=== PATIENT | male | born 1960 | race Caucasian/White ===

== ENCOUNTER → 2023-06-13 10:37 | Outpatient (CLI) | payer BC, SELFPAY ==
--- NOTE | ~2023-06-13 | CT_ITS ---
CT Scan of the Chest without Contrast: Clinical Indication: Lung cancer screening, personal history of nicotine dependence Technique: Contiguous sections were acquired throughout the chest without intravenous contrast. Dose reduction technique was used on this scan by utilizing automated exposure control and iterative recon struction technique. The dose-length product (DLP) was 68.31 mGy-cm. Findings: There is no evidence of any significant mediastinal, hilar or axillary lymphadenopathy. The mediastin al soft tissues appear normal. There is no evidence of pleural or pericardial effusion. There is right apical scarring. There is a 1 cm nodule in the right middle lobe (axial image 77). The re is additional 6 mm nodule in the medial right middle lobe (axial image 77). There is a 7 mm left l ower lobe pulmonary nodule (axial image 82). Images through the upper abdomen reveal no abnormalities. Impression: Lung RADS 4A: Suspicious. 3 month follow-up CT and/or PET/CT are recommended. Reviewed, dictated and finalized at location . Impression: Lung RADS 4A: Suspicious. 3 month follow-up CT and/or PET/CT are recommended.
== END ==
PROVIDERS: PCP Internal Medicine; Visit Provider Internal Medicine
DX: Z12.2 Encounter for screening for malignant neoplasm of respiratory organs (principal); Z87.891 Personal history of nicotine dependence; R91.8 Other nonspecific abnormal finding of lung field
CPT/HCPCS: 71271

== ENCOUNTER 2023-08-14 11:53 | Outpatient (CLI) | payer BC, SELFPAY ==
--- NOTE | ~2023-08-14 | PE_ITS ---
EXAMINATION: PET skull to mid thigh DATE: 08/14/2023 14:29 INDICATION: Multiple nodules of lung. TECHNIQUE: Blood glucose level was 103 mg/dL. 11.521 mCi of 18-fluorodeoxyglucose (18-FDG) was admini stered i.v. Low dose computed tomography (CT) images were acquired from the base of the brain to the proximal thighs for attenuation correction and anatomic localization. Automated exposure control was employed. Dose-length product (DLP) was 552 mGy-cm. Positron emission tomography (PET) images were ac quired in the same distribution. COMPARISON: Chest CT 06/13/2023, 07/14/07 FINDINGS: Head/neck: There are no pathologically enlarged lymph nodes. Chest: There is mild emphysema. There is mild scarring in right upper lobe. There is mild atelectasis bilaterally. There is an 8 mm nodule at minor fissure without increased activity. There is a 6 mm no dule at minor fissure without increased activity. There is a 7 mm nodule at left major fissure withou t increased activity. These findings are stable from 07/14/2007. No pleural effusion. The heart size i s normal. No pericardial effusion. There are no pathologically enlarged lymph nodes. Abdomen/pelvis/proximal thighs: The liver is normal. There is a gallstone in the gallbladder, which i s normal in size. The spleen, pancreas, adrenal glands, and left kidney are normal. There is a 1.8 cm cyst in right kidney. There is a 10 mm mass right kidney measuring soft tissue attenuation. There ar e no dilated loops of bowel. The prostate is mildly enlarged. There are no dilated loops of bowel. Th e appendix is normal. There are no pathologically enlarged lymph nodes. There is no free intraperiton eal fluid. There is severe lumbar spondylosis. IMPRESSION: 1. Stable chronic pulmonary nodules, likely benign. 2. 10 mm right kidney mass, which may be a hemorrhagic cyst or less likely a neoplasm. Abdomen CT wit hout and with contrast is recommended. Reviewed, dictated and finalized at location A. IMPRESSION: 1. Stable chronic pulmonary nodules, likely benign. 2. 10 mm right kidney mass, which may be a hemorrhagic cyst or less likely a ne oplasm. Abdomen CT without and with contrast is recommended.
[2023-08-14 12:18] LABS: Glucose Point of Care 103 mg/dl (65-105)
== END 2023-08-14 11:54 | disposition home or self-care (01) ==
PROVIDERS: PCP Internal Medicine; Visit Provider Internal Medicine
DX: R91.8 Other nonspecific abnormal finding of lung field (principal); N28.89 Other specified disorders of kidney and ureter
CPT/HCPCS: 78815; A9552

== ENCOUNTER 2023-09-01 13:42 | Outpatient (CLI) | payer BC, SELFPAY ==
--- NOTE | ~2023-09-01 | CT_ITS ---
EXAMINATION: CT abdomen pelvis wo/w con DATE: 09/01/2023 14:55 INDICATION: Right renal mass TECHNIQUE: Computed tomography (CT) of the abdomen and pelvis was performed without and with 100 mL O mnipaque-350 intravenous contrast. Automated exposure control and iterative reconstruction technique were employed. The dose-length product was 681.74 mGy-cm. COMPARISON: CT dated 06/13/2023 and 07/14/2007 and PET/CT dated 08/14/2023 FINDINGS: Mild emphysema and scattered discoid atelectasis/scarring in the visualized lower lungs. No significa nt change in 9 mm and 7 mm nodules along the right minor fissure which are without increased FDG upta ke on prior PET/CT and which have been present since 2006, which are likely benign. Heart size is nor mal. Atherosclerotic coronary artery calcific location. No pericardial or pleural effusion. 5 mm cyst at the caudal right hepatic lobe. Small calcified gallstone in the dependent aspect of the normal ga llbladder. Spleen, pancreas and bilateral adrenal glands are normal. Bilateral nonenhancing renal cys ts including 2.3 and 1.0 cm likely proteinaceous/hemorrhagic cysts at the right kidney with slightly greater than simple fluid attenuation. Bowels including the appendix are normal. Bladder is normal. M ild prostatomegaly. No free intraperitoneal gas or fluid. No pathologically enlarged abdominal or pel oracio lymphadenopathy. Severe lumbar spondylosis. IMPRESSION: 1. 2.3 cm and 1.0 cm nonenhancing proteinaceous/hemorrhagic cyst with slightly greater than simple fl uid attenuation in the right kidney which includes the lesion of concern on prior PET/CT. 2. Cholelithiasis. Reviewed, dictated and finalized at location A. IMPRESSION: 1. 2.3 cm and 1.0 cm nonenhancing proteinaceous/hemorrhagic cyst with slightly greater than simple fluid attenuation in the right kidney which includes the le devaughn of concern on prior PET/CT. 2. Cholelithiasis.
[2023-09-01 14:44] LABS: Estimated Glomerular Filt Rate > 60
== END 2023-09-01 13:43 | disposition home or self-care (01) ==
LOC: ANHIMG 13:44
PROVIDERS: PCP Internal Medicine; Visit Provider Internal Medicine Hematology & Oncology
DX: N28.89 Other specified disorders of kidney and ureter (principal); K80.20 Calculus of gallbladder without cholecystitis without obstruction
CPT/HCPCS: 74178; Q9967

== ENCOUNTER 2024-06-16 10:10 | Outpatient (CLI) | payer BC, SELFPAY ==
--- NOTE | ~2024-06-16 | CT_ITS ---
CT Scan of the Chest without Contrast: Clinical Indication: Lung cancer screening, nicotine dependence Technique: Contiguous sections were acquired throughout the chest without intravenous contrast. Dose reduction technique was used on this scan by utilizing automated exposure control and iterative recon struction technique. The dose-length product (DLP) was 100.61 mGy-cm. COMPARISON: 06/13/2023 Findings: There is no evidence of any significant mediastinal, hilar or axillary lymphadenopathy. The mediastin al soft tissues appear normal. There is no evidence of pleural or pericardial effusion. Stable right upper lobe scarring. Stable right middle lobe pulmonary nodules (axial image 80). There is linear scarring at the lingula. Probable mild emphysema. Images through the upper abdomen reveal no abnormalities. Impression: Lung RADS 2: Benign appearance. 12 month follow-up screening CT advised. Reviewed, dictated and finalized at location . Impression: Lung RADS 2: Benign appearance. 12 month follow-up screening CT advised.
== END 2024-06-16 10:11 ==
LOC: MICIMG 10:11
PROVIDERS: PCP Internal Medicine; Visit Provider Internal Medicine Hematology & Oncology
DX: Z12.2 Encounter for screening for malignant neoplasm of respiratory organs (principal); Z87.891 Personal history of nicotine dependence
CPT/HCPCS: 71271

== ENCOUNTER 2025-06-23 08:53 | Outpatient (CLI) | payer BC, SELFPAY ==
--- NOTE | ~2025-06-23 | CT_ITS ---
EXAMINATION: CT diagnostic chest w con DATE: 06/23/2025 09:44 INDICATION: SCREENING FOR LUNG CANCER TECHNIQUE: Computed tomography (CT) of the chest was performed without intravenous contrast. Addition al 3D reconstructions utilizing coronal maximum intensity projection (MIP) were performed. Automated exposure control and iterative reconstruction technique were employed. The dose-length product was 20 3.18 mGy-cm. COMPARISON: 06/16/2024 FINDINGS: Mild emphysema. Table appearance of right apical pleural-parenchymal scarring and additional scarring anteriorly at the right middle lobe and lingula. No significant interval change in a few scattered p ulmonary nodules, the largest including a 9 x 6 mm nodule at the right middle lobe, previously 11 x 6 mm, unchanged 7 mm nodule also in the right middle lobe, a 4 mm nodule at the basilar right lower lo be and an approximately 6 mm thin triangular likely intrafissural lymph node along the left major fis sure. No new or enlarging pulmonary nodules, pneumonia, pulmonary edema or pleural effusion. Heart si ze is normal. No pericardial effusion. Thoracic aorta is normal in caliber with no dissection. No pat hologically enlarged thoracic lymphadenopathy. Couple subcentimeter low-attenuation likely cysts vers us hemangiomas at the dome of the liver. 2.8 cm right renal cyst. Mild thoracic spondylosis. IMPRESSION: 1. . Lung-RADS category 2: Benign appearance or behavior. Continue annual screening with noncontrast low-dose chest CT in 12 months. Reviewed, dictated and finalized at location A. IMPRESSION: 1. . Lung-RADS category 2: Benign appearance or behavior. Continue annual scree gisell with noncontrast low-dose chest CT in 12 months.
--- OUTSIDE RECORDS SUMMARY | 2025-06-23 08:58 | XMS_ITS | Clinical Summary ---
Author Organization [facility] [address] [place] [address] Care Team Providers Care Geotechnical Intern Name Role Phone Nakita Lomeli MD Primary Care Provider Allergies No known active allergies Medications multivitamins-mi nerals-lutein (CENTRUM SILVER) Tablet Take 1 Tablet by mouth daily. Active CHOLECALCIFEROL, VITAMIN D3, ORAL Take by mouth. Active Active Problems No known active problems Encounters Date Type Department Care Team Description 06/21/2025 Orders Only [facility] and [facility] [address] [place] [address] Sgeundo Marie MD Screening for lung cancer (Primary Dx) 06/15/2025 External Device Data STL ABSTRACTION Provider, Abstract 05/23/2025 Abstract [facility] [address] [place] [address] Segundo Marie MD from Last 3 Months Family History Medical History Relation Name Comments Diabetes Father Heart Disease Father Throat Cancer Father Relation Name Status Comments Daughter 1 Alive Daughter 2 Alive Father Mother Alive Sister Alive Social History Tobacco Use Types Packs/Day Years Used Date Smoking Tobacco: Every Day Cigarettes 1 30 Smokeless Tobacco: Never Tobacco Cessation:Ready to Q uit: Not Asked; Counseling Given: Not Answered Alcohol Use Standard Drinks/Week Comments Yes 0 (1 standard drink = 0.6 oz pur e alcohol) Sex and Gender Information Value Date Recorded Sex Assigned at Not on file Legal Sex Male 2:00 PM CDT Gender Identity Not on file Sexual Orientation Not on file Last Filed Vital Signs Vital Sign Reading Time Taken Comments Blood Pressure 132/86 06/23/2024 1:13 PM CDT Pulse 80 06/23/2024 1:13 PM CDT Temperature 36.7 C (98 F) 06/23/2024 1:13 PM CDT Respiratory Rate 18 06/23/2024 1:13 PM CDT Oxygen Saturation 94% 06/23/2024 1:13 PM CDT Inhaled Oxygen Concentration - - Weight 73.5 kg (162 lb) 06/23/2024 1:13 PM CDT Height 171.5 cm (5' 7.5) 08/26/2023 1:14 PM CDT Body Mass Index 25 08/26/2023 1:14 PM CDT Plan of Treatment Upcoming Encounters Date Type Department Care Team (Late st Contact Info) Description 06/30/2025 1:00 PM CDT Office Visit [facility] and H[facility] [address] [facility] [address] [place] [address] Segundo Marie MD [address] [facility] [address] [place] [address] Health Maintenance Due Date Last Done Comments COLORECTAL SCREENING 2007 Colorectal Cancer Screening 2007 FIT-DNA Q 3 years 2007 FIT/FOBT Q 1 year 2007 Flex Sig/CT Colonography Q 5 years 2007 Lung Cancer Screening 2012 ZOSTER VACCINE (1 of 2) 2012 COVID-19 Vaccine ( season) 2024 11/08/2021, 03/05/2021, 02/09/2021 Preventative Visit- Commercial 12/01/2024 INFLUENZA VACCINE (#1) 2025 DTAP/TDAP/TD VACCINES (2 - T d or Tdap) 01/01/2033 01/01/2023 RSV VACCINE (60+ or ) (1 - 1-dose 75+ series) [address] [place] [address] BLUE ACCESS/TRUE BLUE PPO Care Teams Geotechnical Intern Relationship Specialty Start Date End Date Nakita Lomeli MD PCP - General Internal Medicine 08/08/23
--- OUTSIDE RECORDS SUMMARY | 2025-06-23 08:58 | XMS_ITS | Data Portability ---
Author Organization [place] [facility], Main Office Address [address] [place] [address] Care Team Providers Care Strapper Operator Name Role Phone NAKITA LOMELI Primary Care Provider [phone] RADHA MARIE Medical Oncologist [phone] Assessment Encounter Date Assessment Date Assessment LastModified by Organization Details LastModified Time 01/19/2024 01/19/2024 01/11/2023: PSA 0.35 02/01/2023: CBC WN Not available 01/19/2024 09:50:12 07/19/2024 07/19/2024 01/11/2023: PSA 0.35 02/01/2023: CBC WNL 07/09/2024: LDL 104 Gluc 106 HCT 50.4, MCV 101.6 PSA 0.2 Not available 07/19/2024 10:13:24 10/25/2024 10/25/2024 01/11/2023: PSA 0.35 02/01/2023: CBC WNL 07/09/2024: LDL 104 Gluc 106 HCT 50.4, MCV 101.6 PSA 0.2 10/15/2024: A1C 5.2 Gluc 101 LDL 105 Not available 10/25/2024 09:52:56 01/17/2025 01/17/2025 01/11/2023: PSA 0.35 02/01/2023: CBC WNL 07/09/2024: LDL 104 Gluc 106 HCT 50.4, MCV 101.6 PSA 0.2 10/15/2024: A1C 5.2 Gluc 101 LDL 105 01/07/2025: A1C 5.4 Gluc 105 LDL 110 Not available 01/17/2025 11:11:04 05/23/2025 05/23/2025 01/11/2023: PSA 0.35 02/01/2023: CBC WNL 07/09/2024: LDL 104 Gluc 106 HCT 50.4, MCV 101.6 PSA 0.2 10/15/2024: A1C 5.2 Gluc 101 LDL 105 01/07/2025: A1C 5.4 Gluc 105 LDL 110 05/17/2025: A1C 5.2 WBC 10.9, MCV 102.1 Not available 05/19/2025 10:52:57 Plan of Treatment Reminders Order Date Submit Date Provider Last Modified By Organization Details Last Modified Time Details Appointments Follow Up 15 2024 09:15A Idalia lau MD Not available Not available Not available Lab HbA1c (hemoglob in A1c), blood 2024 025 [employer] [facility], [address], [place], [address], 05/23/2025 10:18:34 microalbu min, urine 2024 025 [employer] [facility], [address], [place], [address], 05/23/2025 10:18:31 vitamin B12 + folate, serum or blood 2024 025 [place] [address] [employer] [facility], [address], [place], [address], 05/30/2025 09:55:10 CMP, serum or plasma 2024 025 [employer] [facility], [address], [place], [address], 05/23/2025 10:18:30 CBC w/ auto diff 2024 025 [employer] [facility], [address], [place], [address], 05/23/2025 10:18:29 T4, free, serum 2024 025 [employer] [facility], [address], [place], [address], 05/23/2025 10:18:32 TSH, serum or plasma 2024 025 [employer] [facility], [address], [place], [address], 05/23/2025 10:18:30 lipid panel, serum 2024 025 [employer] [facility], [address], [place], [address], 05/23/2025 10:18:33 HbA1c (hemoglob in A1c), blood 2024 025 [employer] [facility], [address], [place], [address], 05/18/2025 03:19:35 microalbu min, urine 2024 025 [employer] [facility], [address], [place], [address], 05/18/2025 03:19:31 CMP, serum or plasma 2024 025 [employer] [facility], [address], [place], [address], 05/18/2025 03:19:29 CBC w/ auto diff 2024 025 [employer] [facility], [address], [place], [address], 05/18/2025 03:19:32 T4, free, serum 2024 025 [employer] [facility], [address], [place], [address], 05/18/2025 03:19:33 TSH, serum or plasma 2024 025 [employer] [facility], [address], [place], [address], 05/18/2025 03:19:34 lipid panel, serum 2024 025 [facility] [facility], [address], [place], [address], 05/18/2025 03:19:28 HbA1c (hemoglob in A1c), blood 2023 024 [employer] [facility], [address], [place], [address], 01/08/2025 04:38:07 microalbu min, urine 2023 024 [employer] [facility], [address], [place], [address], 01/08/2025 04:38:02 CMP, serum or plasma 2023 024 [facility] [facility], [address], [place], [address], 01/08/2025 04:38:01 CBC w/ auto diff 2023 024 [facility] [facility], [address], [place], [address], 01/08/2025 04:38:03 T4, free, serum 2023 024 [facility] [facility], [address], [place], [address], 01/08/2025 04:38:05 TSH, serum or plasma 2023 024 [employer] [facility], [address], [place], [address], 01/08/2025 04:38:06 lipid panel, serum 2023 024 [facility] [facility], [address], [place], [address], 01/08/2025 04:37:59 HbA1c (hemoglob in A1c), blood 2023 024 [employer] [facility], [address], [place], [address], 11/26/2024 14:52:19 microalbu min, urine 2023 024 [employer] [facility], [address], [place], [address], 11/26/2024 14:50:48 CMP, serum or plasma 2023 024 [employer] [facility], [address], [place], [address], 11/26/2024 14:52:19 CBC w/ auto diff 2023 024 [employer] [facility], [address], [place], [address], 11/26/2024 14:52:20 T4, free, serum 2023 024 [facility] [facility], [address], [place], [address], 11/26/2024 14:52:20 TSH, serum or plasma 2023 024 [employer] [facility], [address], [place], [address], 11/26/2024 14:52:20 lipid panel, serum 2023 [facility]24 [facility] [address], [place], [address], 11/26/2024 14:52:19 PSA, total + free, serum or plasma 2023 024 [place] [id number] [employer] [facility], [address], [place], [address], 07/19/2024 10:20:37 lipid panel, serum 2023 024 [place] [address] [employer] [facility], [address], [place], [address], 07/19/2024 10:20:36 CMP, serum or plasma 2023 024 [place] [address] [employer] [facility], [address], [place], [address], 07/19/2024 10:20:36 CBC w/ auto diff 2023 024 [place] [address] [employer] [facility], [address], [place], [address], 07/19/2024 10:20:37 TSH, serum or plasma 2023 024 [place] [address] [employer] [facility], [address], [place], [address], 07/19/2024 10:20:37 Referral oncologis t referral - Please call patient to schedule an appointme nt. Thank you. 2024 025 [facility], [address], [place], [address], 05/23/2025 13:35:26 dermatolo gist referral - Please call patient to schedule an appointme nt. Thank you. 2024 025 [facility] [place], [address] [place], [address], 05/23/2025 13:45:30 cardiolog ist referral - Please call patient to schedule an appointme nt. Thank you. 2024 025 WENDY Ba MD, [address], [place], [address], 05/23/2025 14:00:49 dermatolo gist referral - Please call patient to schedule an appointme nt. Thank you. 2024 025 [facility], [facility] [place], [address], 05/04/2025 10:04:30 cardiolog ist referral - Please call patient to schedule an appointme nt. Thank you. 2024 025 perez Ba MD, [address], [place], [address], 02/14/2025 16:52:23 dermatolo gist referral 2023 024 [place] [address] [facility], [facility] [place], [address], 10/26/2024 11:37:36 dermatolo gist referral 2023 024 [place] [address] [facility], [facility] [place], [address], 10/26/2024 11:39:26 Procedures None recorded. Surgeries None recorded. Imaging None recorded. Medication Orders None recorded. Patient TargetsNo targets recorded. Patient InstructionsNo instructions recorded. Reason for Referral Group Worker Referral for S creening for malignant neoplasm of skin Referring Physician: Nakita Lomeli, Internal Medicine, Encounter Date: 07/19/2024 Group Worker Referral for S creening for malignant neoplasm of skin Referring Physician: Nakita Lomeli, Internal Medicine, Encounter Date: 10/25/2024 Group Worker Referral for S creening for malignant neoplasm of skin Please call patient to schedule an appointment. Thank you. Referring Physician: Nakita Lomeli Internal Medicine, Encounter Date: 01/17/2025 Bacteriologist Food Referral for Sc reening for cardiovascular system disease Please call patient to schedule an appointment. Thank you. Referring Physician: Nakita Lomeli Internal Medicine, Encounter Date: 01/17/2025 Group Worker Referral for S creening for malignant neoplasm of skin Please call patient to schedule an appointment. Thank you. Referring Physician: Nakita Lomeli Internal Medicine, Encounter Date: 05/23/2025 Bacteriologist Food Referral for Sc reening for cardiovascular system disease Please call patient to schedule an appointment. Thank you. Referring Physician: Nakita Lomeli Internal Medicine, Encounter Date: 05/23/2025 Please call patient to sched ule an appointment. Thank you. Referring Physician: Nakita Lomeli Internal Medicine, Encounter Date: 05/23/2025 Results Created Date Observation Date Name Description Value Unit Range Abnormal Flag Note LastModifiedBy Organization Detail LastModifiedTime 01/07/2001/08/2025 LIPID PANEL , STAND AKSHAT cholesterol, total 189 mg/dL <200 normal Not Available [employer] [facility] [address] [place], [address], 01/08/2025 04:37:59 01/07/2001/08/2025 LIPID PANEL , STAND AKSHAT HDL cholesterol 62 mg/dL > or = 40 normal Not Available [employer] [facility] [address] [place], [address], 01/08/2025 04:37:59 01/07/2001/08/2025 LIPID PANEL , STAND AKSHAT triglyceride s 84 mg/dL <150 normal Not Available [employer] [facility] [address] [place], [address], 01/08/2025 04:37:59 01/07/20 25 01/08/2025 LIPID PANEL , STAND AKSHAT LDL-choleste rol 110 mg/dL _(dipti c) high Refer ence range : <100 Zee able range <100 mg/dL for prima ry preve ntion ; <70 mg/dL for patie nts with CHD or diabe tic patie nts with > or = 2 CHD risk facto rs. LDL-C is now calcu lated using the Amy n-Hop kins calcu yasmeen n, which is a valid ated novel metho d provi ding rich r accur acy than the Fried fabián equat ion in the estim ation of LDL-C . Amy rosa SS et al. ELIU. 2013; 310(1 9): 2061- 2068 (http ://ed ucati on.Qu IceRocket. com/f aq/FA Q164) Not Available [employer] [facility] [address] [place], [address], 01/08/2025 04:37:59 01/07/20 25 01/08/2025 LIPID PANEL , STAND AKSHAT chol/HDLC ratio 3.0 (calc ) <5.0 normal Not Available [employer] [facility] [address] [place], [address], 01/08/2025 04:37:59 01/07/20 25 01/08/2025 LIPID PANEL , STAND AKSHAT non HDL cholesterol 127 mg/dL _(dipti c) <130 normal For patie nts with diabe rufus plus 1 major ASCVD risk facto r, treat ing to a non-H DL-C goal of <100 mg/dL (LDL- C of <70 mg/dL ) is luis f otero optio n. Not Available [employer] [facility] [address] [place], [address], 01/08/2025 04:37:59 01/07/20 25 01/08/2025 COMPR EHENS BREANN METAB OLIC PANEL glucose 105 mg/dL 65-99 high Fasti ng refer ence inter mary For someo ne witho ut known diabe rufus, a gluco se value betwe en 100 and 125 mg/dL is consi stent with predi abete s and shoul d be confi rmed with a follo w-up test. Not Available [address], [address], 01/08/2025 04:38:01 01/07/20 25 01/08/2025 COMPR EHENS BREANN METAB OLIC PANEL urea nitrogen (BUN) 10 mg/dL 7-25 normal Not Available [facility] [address], [address], 01/08/2025 04:38:01 01/07/20 25 01/08/2025 COMPR EHENS BREANN METAB OLIC PANEL creatinine 0.70 mg/dL 0.70-1 .35 normal Not Available [employer] [address], [address], 01/08/2025 04:38:01 01/07/20 25 01/08/2025 COMPR EHENS BREANN METAB OLIC PANEL eGFR 104 mL/mi n/1.7 3m2 > or = 60 normal Not Available [employer] [address], [address], 01/08/2025 04:38:01 01/07/20 25 01/08/2025 COMPR EHENS BREANN METAB OLIC PANEL BUN/creatini ne ratio SEE NOTE: (calc ) 6-22 Not Repor lew: BUN and Creat inine are withi n refer ence range . Not Available [facility] [address], [address], 01/08/2025 04:38:01 01/07/20 25 01/08/2025 COMPR EHENS BREANN METAB OLIC PANEL sodium 139 mmol/ L 135-14 6 normal Not Available [employer] [address], [address], 01/08/2025 04:38:01 02/07/20 25 01/08/2025 COMPR EHENS BREANN METAB OLIC PANEL potassium 4.5 mmol/ L 3.5-5. 3 normal Not Available [address], [address], 01/08/2025 04:38:01 01/07/20 25 01/08/2025 COMPR EHENS BREANN METAB OLIC PANEL chloride 103 mmol/ L 98-110 normal Not Available [address], [address], 01/08/2025 04:38:01 01/07/20 25 01/08/2025 COMPR EHENS BREANN METAB OLIC PANEL carbon dioxide 29 mmol/ L 20-32 normal Not Available [address], [address], 01/08/2025 04:38:01 01/07/20 25 01/08/2025 COMPR EHENS BREANN METAB OLIC PANEL calcium 9.8 mg/dL 8.6-10 .3 normal Not Available [address], [address], 01/08/2025 04:38:01 01/07/20 25 01/08/2025 COMPR EHENS BREANN METAB OLIC PANEL protein, total 7.7 g/dL 6.1-8. 1 normal Not Available [address], [address], 01/08/2025 04:38:01 01/07/20 25 01/08/2025 COMPR EHENS BREANN METAB OLIC PANEL albumin 4.6 g/dL 3.6-5. 1 normal Not Available [address], [address], 01/08/2025 04:38:01 01/07/20 25 01/08/2025 COMPR EHENS BREANN METAB OLIC PANEL globulin 3.1 g/dL_ (calc ) 1.9-3. 7 normal Not Available [address], [address], 01/08/2025 04:38:01 01/07/20 25 01/08/2025 COMPR EHENS BREANN METAB OLIC PANEL albumin/glob ulin ratio 1.5 (calc ) 1.0-2. 5 normal Not Available [address], [address], 01/08/2025 04:38:01 01/07/20 25 01/08/2025 COMPR EHENS BREANN METAB OLIC PANEL bilirubin, total 0.5 mg/dL 0.2-1. 2 normal Not Available [address], [address], 01/08/2025 04:38:01 01/07/20 25 01/08/2025 COMPR EHENS BREANN METAB OLIC PANEL alkaline phosphatase 62 U/L 35-144 normal Not Available [address], [address], 01/08/2025 04:38:01 01/07/20 25 01/08/2025 COMPR EHENS BREANN METAB OLIC PANEL AST 13 U/L 10-35 normal Not Available [address], [address], 01/08/2025 04:38:01 01/07/20 25 01/08/2025 COMPR EHENS BREANN METAB OLIC PANEL ALT 16 U/L 9-46 normal Not Available [address], [address], 01/08/2025 04:38:01 01/07/20 25 01/08/2025 ALBUM IN, RANDO M URINE W/O CREAT ININE albumin, urine 0.2 mg/dL see note: normal Refer ence Range : Refer ence Range Not estab lishe d Not Available [address], [address], 01/08/2025 04:38:02 01/07/20 25 01/08/2025 ALBUM IN, RANDO M URINE W/O CREAT ININE WILLIAM The ADA defin es abnor malit ies in album in excre tion as follo ws: Album inuri a Categ ory Resul t (mg/g creat inine ) Corin l to Mildl y incre ased <30 Moder ately incre ased 30-29 9 Sever vita incre ased > OR = 300 The ADA recom mends that at least two of three speci mens colle cted withi n a 3-6 month perio d be abnor mal befor e consi alexandra g a patie nt to be withi n a diagn ostic categ ory. Not Available [facility] [address], [address], 01/08/2025 04:38:02 01/07/20 25 01/08/2025 CBC (INCL UDES DIFF/ PLT) white blood cell count 8.9 thous and/u L 3.8-10 .8 normal Not Available [facility] [address], [address], 01/08/2025 04:38:03 01/07/20 25 01/08/2025 CBC (INCL UDES DIFF/ PLT) red blood cell count 4.94 ike on/uL 4.20-5 .80 normal Not Available [facility] [address], [address], 01/08/2025 04:38:03 01/07/20 25 01/08/2025 CBC (INCL UDES DIFF/ PLT) hemoglobin 16.7 g/dL 13.2-1 7.1 normal Not Available [facility] [address], [address], 01/08/2025 04:38:03 01/07/20 25 01/08/2025 CBC (INCL UDES DIFF/ PLT) hematocrit 49.2 % 38.5-5 0.0 normal Not Available [facility] [address] [address] [address], [place], [address], 01/08/2025 04:38:03 01/07/20 25 01/08/2025 CBC (INCL UDES DIFF/ PLT) MCV 99.6 fL 80.0-1 00.0 normal Not Available [facility] [address], [address], 01/08/2025 04:38:03 01/07/20 25 01/08/2025 CBC (INCL UDES DIFF/ PLT) MCH 33.8 pg 27.0-3 3.0 high Not Available [employer] [facility] [address], [address], 01/08/2025 04:38:03 01/07/20 25 01/08/2025 CBC (INCL UDES DIFF/ PLT) MCHC 33.9 g/dL 32.0-3 6.0 normal For adult s, a sligh t decre ase in the calcu lated MCHC value (in the range of 30 to 32 g/dL) is most likel y not clini ilana signi cady t; patria er, it shoul d be inter prete d with [facility] with other red cell elaine eters and the patie nt's clini dipti condi tion. Not Available [employer] [address], [address], 01/08/2025 04:38:03 01/07/20 25 01/08/2025 CBC (INCL UDES DIFF/ PLT) RDW 12.9 % 11.0-1 5.0 normal Not Available [employer] [address], [address], 01/08/2025 04:38:03 01/07/20 25 01/08/2025 CBC (INCL UDES DIFF/ PLT) platelet count 222 thous and/u L 140-40 0 normal Not Available [employer] [address], [address], 01/08/2025 04:38:03 01/07/20 25 01/08/2025 CBC (INCL UDES DIFF/ PLT) MPV 11.4 fL 7.5-12 .5 normal Not Available [address], [address], 01/08/2025 04:38:03 01/07/20 25 01/08/2025 CBC (INCL UDES DIFF/ PLT) absolute neutrophils 5571 cells /uL 1500-7 800 normal Not Available [address], [address], 01/08/2025 04:38:03 01/07/20 25 01/08/2025 CBC (INCL UDES DIFF/ PLT) absolute lymphocytes 2225 cells /uL 850-39 00 normal Not Available [address], [address], 01/08/2025 04:38:03 01/07/20 25 01/08/2025 CBC (INCL UDES DIFF/ PLT) absolute monocytes 765 cells /uL 200-95 0 normal Not Available [address], [address], 01/08/2025 04:38:03 01/07/20 25 01/08/2025 CBC (INCL UDES DIFF/ PLT) absolute eosinophils 249 cells /uL 15-500 normal Not Available [address], [address], 01/08/2025 04:38:03 01/07/20 25 01/08/2025 CBC (INCL UDES DIFF/ PLT) absolute basophils 89 cells /uL 0-200 normal Not Available [address], [address], 01/08/2025 04:38:03 01/07/20 25 01/08/2025 CBC (INCL UDES DIFF/ PLT) neutrophils 62.6 % normal Not Available [address], [address], 01/08/2025 04:38:03 01/07/20 25 01/08/2025 CBC (INCL UDES DIFF/ PLT) lymphocytes 25.0 % normal Not Available [facility] [address], [address], 01/08/2025 04:38:03 01/07/20 25 01/08/2025 CBC (INCL UDES DIFF/ PLT) monocytes 8.6 % normal Not Available [facility] [address], [address], 01/08/2025 04:38:03 01/07/20 25 01/08/2025 CBC (INCL UDES DIFF/ PLT) eosinophils 2.8 % normal Not Available [facility] [address], [address], 01/08/2025 04:38:03 01/07/20 25 01/08/2025 CBC (INCL UDES DIFF/ PLT) basophils 1.0 % normal Not Available [facility] [address], [address], 01/08/2025 04:38:03 01/07/20 25 01/08/2025 T4, FREE T4, free 1.2 NG/dL 0.8-1. 8 normal Not Available [address], [address], 01/08/2025 04:38:05 01/07/20 25 01/08/2025 TSH TSH 1.42 mIU/L 0.40-4 .50 normal Not Available [address], [address], 01/08/2025 04:38:06 01/07/20 25 01/08/2025 HEMOG LOBIN A1C hemoglobin A1C 5.4 %_of_ total _HGB <5.7 normal For the purpo se of carlos jameson for the prese nce of diabe rufus: <5.7% Consi stent with the absen ce of diabe rufus 5.7-6 .4% Consi stent with incre ased risk for diabe rufus (pred iabet es) > or =6.5% Consi stent with diabe rufus This assay resul t is consi stent with a decre ased risk of diabe rufus. Curre ntly, no conse nsus exist s gideon louise use of hemog lobin A1c for diagn osis of diabe rufus in child dl. Accor ding to Ameri can Diabe rufus Assoc iatio n (ADA) guide lines , hemog lobin A1c <7.0% repre sents optim al contr ol in non-p regna nt diabe tic patie nts. Diffe rent metri cs may apply to speci fic patie nt popul ation s. Stand ards of Medic al Care in Diabe rufus(A DA). Not Available [place] [address] [place], [address], 01/08/2025 04:38:07 05/17/20 25 05/18/2025 LIPID PANEL WITH REFLE X TO DIREC T LDL cholesterol, total 167 mg/dL <200 normal Not Available [place] [address] [place], [address], 05/18/2025 03:19:28 05/17/20 25 05/18/2025 LIPID PANEL WITH REFLE X TO DIREC T LDL HDL cholesterol 65 mg/dL > or = 40 normal Not Available [facility] [place] [address] [place], [address], 05/18/2025 03:19:28 05/17/20 25 05/18/2025 LIPID PANEL WITH REFLE X TO DIREC T LDL triglyceride s 56 mg/dL <150 normal Not Available [facility] [address] [place], [address], 05/18/2025 03:19:28 05/17/20 25 05/18/2025 LIPID PANEL WITH REFLE X TO DIREC T LDL LDL-choleste rol 88 mg/dL _(dipti c) normal Refer ence range : <100 Zee able range <100 mg/dL for prima ry preve ntion ; <70 mg/dL for patie nts with CHD or diabe tic patie nts with > or = 2 CHD risk facto rs. LDL-C is now calcu lated using the [facility] n-Hop kins ehsanu yasmeen n, which is a valid ated novel metho d provi ding rich r accur acy than the Fried fabián equat ion in the estim ation of LDL-C . Amy n SS et al. ELIU. 2013; 310(1 9): 2061- 2068 (http ://ed ucati on.[employer]Bridge. Ready/f aq/FA Q164) Not Available [employer] [address] [place] [address] [place], [address], 05/18/2025 03:19:28 05/17/2005/18/2025 LIPID PANEL WITH REFLE X TO DIREC T LDL chol/HDLC ratio 2.6 (calc ) <5.0 normal Not Available [employer] [place] [address] [place], [address], 05/18/2025 03:19:28 05/17/2005/18/2025 LIPID PANEL WITH REFLE X TO DIREC T LDL non HDL cholesterol 102 mg/dL _(dipti c) <130 normal For patie nts with diabe rufus plus 1 major ASCVD risk facto r, treat ing to a non-H DL-C goal of <100 mg/dL (LDL- C of <70 mg/dL ) is consi dered a thera peuti c optio n. Not Available [employer] [address], [address], 05/18/2025 03:19:28 05/17/2005/18/2025 COMPR EHENS BREANN METAB OLIC PANEL glucose 96 mg/dL 65-99 normal Fasti ng refer ence inter mary Not Available [employer] [facility] [address] [place] [address], [address], 05/18/2025 03:19:29 05/17/20 25 05/18/2025 COMPR EHENS BREANN METAB OLIC PANEL urea nitrogen (BUN) 19 mg/dL 7-25 normal Not Available [address], [address], 05/18/2025 03:19:29 05/17/20 25 05/18/2025 COMPR EHENS BREANN METAB OLIC PANEL creatinine 0.78 mg/dL 0.70-1 .35 normal Not Available [address], [address], 05/18/2025 03:19:29 05/17/20 25 05/18/2025 COMPR EHENS BREANN METAB OLIC PANEL eGFR 100 mL/mi n/1.7 3m2 > or = 60 normal Not Available [address], [address], 05/18/2025 03:19:29 05/17/20 25 05/18/2025 COMPR EHENS BREANN METAB OLIC PANEL BUN/creatini ne ratio SEE NOTE: (calc ) 6-22 Not Repor lew: BUN and Creat inine are withi n refer ence range . Not Available [address], [address], 05/18/2025 03:19:29 05/17/20 25 05/18/2025 COMPR EHENS BREANN METAB OLIC PANEL sodium 138 mmol/ L 135-14 6 normal Not Available [address], [address], 05/18/2025 03:19:29 05/17/20 25 05/18/2025 COMPR EHENS BREANN METAB OLIC PANEL potassium 4.6 mmol/ L 3.5-5. 3 normal Not Available [facility] [employer] [address], [address], 05/18/2025 03:19:29 05/17/20 25 05/18/2025 COMPR EHENS BREANN METAB OLIC PANEL chloride 104 mmol/ L 98-110 normal Not Available [address], [address], 05/18/2025 03:19:29 05/17/20 25 05/18/2025 COMPR EHENS BREANN METAB OLIC PANEL carbon dioxide 27 mmol/ L 20-32 normal Not Available [address], [address], 05/18/2025 03:19:29 05/17/2005/18/2025 COMPR EHENS BREANN METAB OLIC PANEL calcium 9.4 mg/dL 8.6-10 .3 normal Not Available [address], [address], 05/18/2025 03:19:29 05/17/20 25 05/18/2025 COMPR EHENS BREANN METAB OLIC PANEL protein, total 7.4 g/dL 6.1-8. 1 normal Not Available [address], [address], 05/18/2025 03:19:29 05/17/20 25 05/18/2025 COMPR EHENS BREANN METAB OLIC PANEL albumin 4.5 g/dL 3.6-5. 1 normal Not Available [address], [address], 05/18/2025 03:19:29 05/17/20 25 05/18/2025 COMPR EHENS BREANN METAB OLIC PANEL globulin 2.9 g/dL_ (calc ) 1.9-3. 7 normal Not Available [address], [address], 05/18/2025 03:19:29 05/17/20 25 05/18/2025 COMPR EHENS BREANN METAB OLIC PANEL albumin/glob ulin ratio 1.6 (calc ) 1.0-2. 5 normal Not Available [address], [address], 05/18/2025 03:19:29 05/17/20 25 05/18/2025 COMPR EHENS BREANN METAB OLIC PANEL bilirubin, total 0.4 mg/dL 0.2-1. 2 normal Not Available [address], [address], 05/18/2025 03:19:29 05/17/20 25 05/18/2025 COMPR EHENS BREANN METAB OLIC PANEL alkaline phosphatase 69 U/L 35-144 normal Not Available [address], [address], 05/18/2025 03:19:29 05/17/20 25 05/18/2025 COMPR EHENS BREANN METAB OLIC PANEL AST 11 U/L 10-35 normal Not Available [address], [address], 05/18/2025 03:19:29 05/17/20 25 05/18/2025 COMPR EHENS BREANN METAB OLIC PANEL ALT 15 U/L 9-46 normal Not Available [address], [address], 05/18/2025 03:19:29 05/17/20 25 05/18/2025 ALBUM IN, RANDO M URINE W/O CREAT ININE albumin, urine <0.2 mg/dL see note: normal Refer ence Range : Refer ence Range Not estab lishe d Not Available [address], [address], 05/18/2025 03:19:30 05/17/20 25 05/18/2025 ALBUM IN, RANDO M URINE W/O CREAT ININE WILLIAM The ADA defin es abnor malit ies in album in excre tion as follo ws: Album inuri a Categ ory Resul t (mg/g creat inine ) Corin l to Mildl y incre ased <30 Moder ately incre ased 30-29 9 Sever vita incre ased > OR = 300 The ADA recom mends that at least two of three speci mens colle cted withi n a 3-6 month perio d be abnor mal befor e consi alexandra g a patie nt to be withi n a diagn ostic categ ory. Not Available [address], [address], 05/18/2025 03:19:30 05/17/2005/18/2025 CBC (INCL UDES DIFF/ PLT) white blood cell count 10.9 thous and/u L 3.8-10 .8 high Not Available [facility] [address], [address], 05/18/2025 03:19:32 05/17/2005/18/2025 CBC (INCL UDES DIFF/ PLT) red blood cell count 4.74 ike on/uL 4.20-5 .80 normal Not Available [address], [address], 05/18/2025 03:19:32 05/17/2005/18/2025 CBC (INCL UDES DIFF/ PLT) hemoglobin 16.4 g/dL 13.2-1 7.1 normal Not Available [address], [address], 05/18/2025 03:19:32 05/17/2005/18/2025 CBC (INCL UDES DIFF/ PLT) hematocrit 48.4 % 38.5-5 0.0 normal Not Available [facility] [address], [address], 05/18/2025 03:19:32 05/17/2005/18/2025 CBC (INCL UDES DIFF/ PLT) MCV 102.1 fL 80.0-1 00.0 high Not Available [facility] [address], [address], 05/18/2025 03:19:32 05/17/2005/18/2025 CBC (INCL UDES DIFF/ PLT) MCH 34.6 pg 27.0-3 3.0 high Not Available [facility] [address], [address], 05/18/2025 03:19:32 05/17/2005/18/2025 CBC (INCL UDES DIFF/ PLT) MCHC 33.9 g/dL 32.0-3 6.0 normal For adult s, a sligh t decre ase in the calcu lated MCHC value (in the range of 30 to 32 g/dL) is most likel y not clini ilana signi fican t; patria er, it shoul d be inter prete d with [facility] with other red cell elaine eters and the patie nt's clini dipti condi tion. Not Available [facility] [address], [address], 05/18/2025 03:19:32 05/17/2005/18/2025 CBC (INCL UDES DIFF/ PLT) RDW 13.2 % 11.0-1 5.0 normal Not Available [facility] [address], [address], 05/18/2025 03:19:32 05/17/2005/18/2025 CBC (INCL UDES DIFF/ PLT) platelet count 234 thous and/u L 140-40 0 normal Not Available [facility] [address], [address], 05/18/2025 03:19:32 05/17/2005/18/2025 CBC (INCL UDES DIFF/ PLT) MPV 11.3 fL 7.5-12 .5 normal Not Available [facility] [address] [place], [address], 05/18/2025 03:19:32 05/17/20 25 05/18/2025 CBC (INCL UDES DIFF/ PLT) absolute neutrophils 7140 cells /uL 1500-7 800 normal Not Available [address], [address], 05/18/2025 03:19:32 05/17/20 25 05/18/2025 CBC (INCL UDES DIFF/ PLT) absolute lymphocytes 2442 cells /uL 850-39 00 normal Not Available [address], [address], 05/18/2025 03:19:32 05/17/2005/18/2025 CBC (INCL UDES DIFF/ PLT) absolute monocytes 970 cells /uL 200-95 0 high Not Available [address], [address], 05/18/2025 03:19:32 05/17/20 25 05/18/2025 CBC (INCL UDES DIFF/ PLT) absolute eosinophils 251 cells /uL 15-500 normal Not Available [address], [address], 05/18/2025 03:19:32 05/17/20 25 05/18/2025 CBC (INCL UDES DIFF/ PLT) absolute basophils 98 cells /uL 0-200 normal Not Available [address], [address], 05/18/2025 03:19:32 05/17/20 25 05/18/2025 CBC (INCL UDES DIFF/ PLT) neutrophils 65.5 % normal Not Available [address], [address], 05/18/2025 03:19:32 05/17/20 25 05/18/2025 CBC (INCL UDES DIFF/ PLT) lymphocytes 22.4 % normal Not Available [facility] [id number], [place], [address], 05/18/2025 03:19:32 05/17/2005/18/2025 CBC (INCL UDES DIFF/ PLT) monocytes 8.9 % normal Not Available [facility] [address], [address], 05/18/2025 03:19:32 05/17/2005/18/2025 CBC (INCL UDES DIFF/ PLT) eosinophils 2.3 % normal Not Available [facility] [address], [address], 05/18/2025 03:19:32 05/17/2005/18/2025 CBC (INCL UDES DIFF/ PLT) basophils 0.9 % normal Not Available [address], [address], 05/18/2025 03:19:32 05/17/2005/18/2025 T4, FREE T4, free 1.0 NG/dL 0.8-1. 8 normal Not Available [address], [address], 05/18/2025 03:19:33 05/17/2005/18/2025 TSH TSH 1.72 mIU/L 0.40-4 .50 normal Not Available [address], [address], 05/18/2025 03:19:34 05/17/2005/18/2025 HEMOG LOBIN A1C hemoglobin A1C 5.2 %_of_ total _HGB <5.7 normal For the purpo se of carlos jameson for the prese nce of diabe rufus: <5.7% Consi stent with the absen ce of diabe rufus 5.7-6 .4% Consi stent with incre ased risk for diabe rufus (pred iabet es) > or =6.5% Consi stent with diabe rufus This assay resul t is consi stent with a decre ased risk of diabe rufus. Curre ntly, no conse nsus exist s gideon louise use of hemog lobin A1c for diagn osis of diabe rufus in child dl. Accor ding to Ameri can Diabe rufus Assoc iatio n (ADA) guide lines , hemog lobin A1c <7.0% repre sents optim al contr ol in non-p regna nt diabe tic patie nts. Diffe rent metri cs may apply to speci fic patie nt popul ation s. Stand ards of Medic al Care in Diabe rufus(A DA). Not Available [facility] [address] [address] , [place], [address], 05/18/2025 03:19:35 06/16/20 24 06/16/2024 imagi ng/di agnos tic resul t No observ ation record ed. [facility] 2022 Earl Borrego [facility] [address], [place], [address], 06/16/2024 12:03:42 Result Notes None recorded. Problems Name Problem SNOMED Code Status Onset Date Resolution Date Notes Provider Name and Address Organization Details Recorded Time Leukocytosi s 787841570 Active 2022 Nakita lau MD [address] [facility], [facility] [address], [place], [address] [facility] [employer] 5 10:53:45 Pain of right shoulder joint 6608170970675 9100 Active 2022 MERCEDES Coy null, [employer] 3 13:36:45 Impingement syndrome of right shoulder region 9599158446986 02 Active 2022 MERCEDES Coy null, [employer] 3 13:36:55 Smoker 96310312 Active 2022 Angy Miner null, [employer] 3 15:10:30 Cigarette smoker 03932890 Active 2022 Nakita lau MD [address], [address], [place], [address], [facility] [employer] [facility] [employer] [facility] 3 15:11:55 Multiple nodules of lung 600918322 Active 2022 Nakita lau MD [address], [address], [place], [address], [facility] [employer] [facility] [employer] [facility] 3 10:27:31 Renal mass 958251560 Active 2022 Angy Miner null, [facility] [employer] [facility] 3 15:18:20 Hyperlipide terry 97872550 Active 2023 Nakita lau MD [address], [address], [place], [address], [employer] [facility] [employer] [facility] 4 10:13:56 Hyperglycem ia 13808956 Active 2023 Nakita lau MD [address], [address], [place], [address], [facility] [employer] [facility] [employer] [facility] 4 10:30:39 Erythrocyto sis 126238887 Active 2023 Nakita lau MD [address], [address], [place], [address], [facility] [employer] [facility] [employer] [facility] 4 10:30:53 Macrocytosi s 992796691 Active 2024 Nakita lau MD [address], [place], [address], [employer] [facility] [employer] [facility] 5 10:17:22 Problem Notes None recorded. Medical Equipment None Reported. Allergies No known drug allergies Medications Name Sig Start Date Stop Date Status Note LastModified by Organization Details LastModified Time Kenalog 10 mg/mL suspension for injection In office injection administe red by the provider 07/09 completed [place]: 0003- 0494- 20 Not Available Not Available Not Available ropivacaine (PF) 5 mg/mL (0.5 %) injection solution In office injection administe red by the provider 07/09 completed [facility] [id number]- 01 Not Available Not Available Not Available Vitals Date Recorded Body height Body mass index (BMI) Body weight Body temperature Heart rate Systolic And Diastolic Provider Name and Address Organization Details Last Updated DateTime 5 175.26 cm 24.8 kg/m2 23645.5 2 g 97.7 [degF] 78 /min 124/76 mm[Hg] Leonela Youssef [facility] [employer] [facility] 5 10:50:51 Date Recorded Body height Body mass index (BMI) Body weight Body temperature Heart rate Oxygen saturation Oxygen saturation in Arterial blood by Pulse oximetry Systolic And Diastolic Provider Name and Address Organization Details Last Updated DateTime 4 175.26 cm 23.9 kg/m2 76841.9 6 g 97.6 [degF] 68 /min 96 % 96 % 132/74 mm[Hg] Katty Stinson [facility] [employer] [facility] 4 09:55:52 Date Recorded Body height Body mass index (BMI) Body weight Body temperature Heart rate Systolic And Diastolic Provider Name and Address Organization Details Last Updated DateTime 5 175.26 cm 24.4 kg/m2 82040.7 4 g 98.5 [degF] 78 /min 128/80 mm[Hg] Leonela Youssef [facility] [employer] [facility] 5 09:53:57 Date Recorded Body height Body mass index (BMI) Body weight Body temperature Heart rate Systolic And Diastolic Provider Name and Address Organization Details Last Updated DateTime 4 175.26 cm 24.2 kg/m2 13036.1 5 g 97.5 [degF] 72 /min 120/78 mm[Hg] Leonela Youssef [facility] [employer] [facility] 4 09:59:43 Date Recorded Body height Body mass index (BMI) Body weight Body temperature Heart rate Systolic And Diastolic Provider Name and Address Organization Details Last Updated DateTime 4 175.26 cm 25 kg/m2 36511.1 1 g 97.7 [degF] 78 /min 124/72 mm[Hg] MERCEDES [place] [facility] [employer] 09:43:51 Social History Question Answer Notes LastModified by Organizat ion Details LastModified Time Tobacco Smoking Status Current Every Day Smoker Catalina romero, [place] Juan José [facility] [place] [employer] [facility] 01/19/2024 09:51:23 What Is Your Level Of Caffeine Consumption? Moderate [id number] Information not available 01/30/2023 In The 14 Days Before Symptom Onset, Have You Had Close Contact With A Laboratory-confi rmed COVID-19 While That Case Was Ill? No [email or web address] Information not available 01/19/2024 In The 14 Days Before Symptom Onset, Have You Had Close Contact With A Person Who Is Under Investigation For COVID-19 While That Person Was Ill? No [email or web address] Information not available 01/19/2024 What Type Of Diet Are You Following? REGULAR [id number] Information not available 01/30/2023 What Is The Highest Grade Or Level Of School You Have Completed Or The Highest Degree You Have Received? [id number] [email or web address] Information not available 01/19/2024 Have There Been Any Changes To Your Family Or Social Situation? No [email or web address] Information not available 01/19/2024 What Is The Fluoride Status Of Your Home? Unknown [email or web address] Information not available 01/19/2024 Are There Any Guns Present In Your Home? No [email or web address] Information not available 01/19/2024 Do You Use Insect Repellent Routinely? Yes [email or web address] Information not available 01/19/2024 [facility] [email or web address] Information not available 01/19/2024 What Was The Date Of Your Most Recent Tobacco Screening? 05/23/2025 [email or web address] Information not available 05/23/2025 Do You Have Any Pets? Yes [email or web address] Information not available 01/19/2024 What Is Your Relationship Status? [id number] Information not available 01/30/2023 Do You Have Smoke And Carbon Monoxide Detectors In Your Home? Yes Information not available 01/19/2024 At What Age Did You Start Smoking Tobacco? 26 [email or web address] Information not available 01/19/2024 Are You Passively Exposed To Smoke? Yes [email or web address] Information not available 01/19/2024 Are There Any Smokers In Your House? Yes [email or web address] Information not available 01/19/2024 How Much Tobacco Do You Smoke? 1 PPD [id number] Information not available 01/30/2023 Do You Use Sunscreen Routinely? Yes [email or web address] Information not available 01/19/2024 Have You Recently Traveled Abroad? No [email or web address] Information not available 01/19/2024 Do You Have Any Dietary Restrictions? No Information not available 01/19/2024 Sex: Unknown Functional Status Question Answer Note LastModified by Organizat ion Details LastModified Time Do you use any illicit or recreational drugs? No [email or web address] Information not available 01/19/2024 Do you or have you ever used any other forms of tobacco or nicotine? No [email or web address] Information not available 01/19/2024 What is your level of alcohol consumption? Moderate [id number] Information not available 01/30/2023 What is your exercise level? Occasional [id number] Information not available 01/30/2023 Mental Status Question Answer Note LastModified by Organization D etails LastModified Time Do you feel stressed (tense, restless, nervous, or anxious, or unable to sleep at night)? [id number] [email or web address] Information not available 01/19/2024 Family History Relationship Description Onset Age of this Age Resolved Age Notes LastModified by Organization Details LastModified Time Father Heart disease [id number] Not available 01/30/2023 01:53:07 Father Diabetes mellitus [id number] Not available 01/30/2023 01:53:07 Father Family history of malignant neoplasm [email or web address] Not available 01/19 09:51:23 Sister Malignant tumor of colon [email or web address] Not available 2023 09:57:26 Medical History No medical history recorded. Immunizations Vaccine Type Date Status Note Provider Son allison and Address Organization Details Recorded Time Tdap 01/01/2023 completed Not Available [employer] 01/30/2023 01:54:46 COVID-19, mRNA, LNP-S, PF, 30 mcg/0.3 mL dose 02/09/2021 completed MERCEDES Edmond, [facility] 07/19/2024 09:58:03 COVID-19, mRNA, LNP-S, PF, 30 mcg/0.3 mL dose 03/05/2021 completed MERCEDES [place], [place] - [facility] 07/19/2024 09:58:03 COVID-19, mRNA, LNP-S, PF, 30 mcg/0.3 mL dose 11/08/2021 completed MERCEDES Edmond, [facility] 07/19/2024 09:58:03 Past Encounters Encounter ID Performer Location Encounter Start Date Encounter Closed Date Diagnosis/Indication Diagnosis SNOMED-CT Code Diagnosis ICD10 Code Diagnosis Note [id number] Nakita jones MD [facility] [place] [facility] [place] [address] [place] [address] [place] [address] 01/01/2023 00:00:00 01/01/2023 12:47:07 [id number] Benjamín Morrell MD [facility] [place] [address] [place] [address] 01/14/2023 00:00:00 01/14/2023 15:58:00 [id number] Benjamín Morrell MD [facility] [place] [address] [place] [address] 03/04/2023 13:34:21 03/04/2023 14:35:29 Pain of right shoulder joint 4173830751 3947296 M25.511 Impingemen t syndrome of right shoulder region 1631070425 37366 M75.41 [id number] Nakita jones MD [facility] Internal Med [facility] [address] [place] [address] 07/09/2023 09:56:19 07/09/2023 10:30:36 Screening - NAD 298984519 Z13.9 C-scope: Cologuard 01/09/2023 : Negative Get yearly flu shotGet tdapGet shingles vaccineUTD on COVID 19 vaccine RTC in 6 months, do labsER if worse, he did verbalize his understand ing of the above Cigarette smoker 0450030 7 F17.210 Advised to quit! He will try to do nicotine gum 1 PPD for 36 + years LDCT 06/13/2023 : Get PET CT and repeat the LDCT in 3 months Get US AAA at age 67 years Pain of ri ght shoulder joint 4281939137 4165611 M25.511 Dr Morrell 01/14/2023 , Les Leach 03/04/2023 Screening for cardiovascular system disease 658403106 Z13.6 Multiple n odules of lung 005110696 R91.8 LDCT 06/13/2023 : Get PET CT and repeat the LDCT in [address] Maire Get US AAA at age 67 years Screening for malignant neoplasm of prostate 112804426 Z12.5 [id number] Nakita jones MD [facility] Internal [facility] [place] [address] [facility] [place] [address] 01/19/2024 09:47:44 01/19/2024 10:18:23 Screening - NAD 187167408 Z13.9 C-scope: Cologuard 01/09/2023 : Negative Get yearly flu shotGet tdapGet shingles vaccineUTD on COVID 19 vaccine RTC in 6 months, do labsER if worse, he did verbalize his understand ing of the above Cigarette smoker 9310421 7 F17.210 Advised to quit! He will try to do nicotine gum 1 PPD for 36 + years LDCT 06/13/2023 : Get PET CT and repeat the LDCT in 3 months Get US AAA at age 67 years Pain of ri ght shoulder joint 9933331056 4230047 M25.511 Dr Morrell 01/14/2023 , Les Leach 03/04/2023 Screening for cardiovascular system disease 278530161 Z13.6 Multiple n odules of lung 388366238 R91.8 LDCT 06/13/2023 : Get PET CT and repeat the LDCT in 3 [address]Get [address] with Dr Marie Get US AAA at age 67 years Screening for malignant neoplasm of prostate 810170943 Z12.5 Renal mass 227926698 N28 .[address] 08/14/2023 CT A/P 09/01/2023 : Dr Frank Marie 08/26/2023 [id number] Nakita jones MD [facility] Internal Med [place] [address] [place] [address] 07/19/2024 09:37:10 07/19/2024 10:32:37 Screening - NAD 780628035 Z13.9 C-scope: Cologuard 01/09/2023 : Negative Get yearly flu shotGet tdapGet shingles vaccineUTD on COVID 19 vaccine RTC in 3 months, do labsER if worse, he did verbalize his understand ing of the above Cigarette smoker 2699835 7 F17.210 Advised to quit! He will try to do nicotine gum 1 PPD for 36 + years LDCT 06/13/2023 : Get PET CT and repeat the LDCT in 3 monthsLDCT 06/16/2024 : Next in one year: Dr Marie Get US AAA at age 67 years Pain of ri ght shoulder joint 7100051361 4502276 M25.511 Dr Morrell 01/14/2023 , Les Leach 03/04/2023 Multiple n odules of lung 255356928 R91.8 LDCT 06/13/2023 : Get PET CT and repeat the LDCT in [address] Dr Marie Get US AAA at age 67 years Renal mass 107855303 N28 .[address] 08/14/2023 CT A/P 09/01/2023 : Dr Frank Marie 08/26/2023 Dr Marie 06/23/2024 , s/p LDCT 06/16/2024 , next OV one year Hyperlipidemia 42470167 E78.5 More diet and exerciseRe peat the labs Hyperglycemia 52742219 R 73.9 Erythrocytosis 521627866 D75.1 Repeat the CBCHe does smokeAdvis ed to quit Screening for malignant neoplasm of skin 308228770 Z12.83 [id number] Nakita jones MD [facility] Primary Care Alfredo lozano [address] [facility] [address] [place] [address] 10/25/2024 09:33:05 10/25/2024 10:13:17 Screening - NAD 862021584 Z13.9 C-scope: Cologuard 01/09/2023 : Negative Get yearly flu shotGet tdapGet shingles vaccineUTD on COVID 19 vaccine RTC in 3 months, do labsER if worse, he did verbalize his understand ing of the above Cigarette smoker 5759683 7 F17.210 Advised to quit! He will try to do nicotine gum 1 PPD for 36 + years LDCT 06/13/2023 : Get PET CT and repeat the LDCT in 3 monthsLDCT 06/16/2024 : Next in one year: Dr Marie Get US AAA at age 67 years Pain of ri ght shoulder joint 2949859619 3750175 M25.511 Dr Morrell 01/14/2023 , Les Leach 03/04/2023 Multiple n odules of lung 220363347 R91.8 LDCT 06/13/2023 : Get PET CT and repeat the LDCT in 3 months Get US AAA at age 67 years Renal mass 404236014 N28 .[address] 08/14/2023 CT A/P 09/01/2023 : Dr Frank Marie 08/26/2023 Dr Marie 06/23/2024 , s/p LDCT 06/16/2024 , next OV one year Hyperlipidemia 90305164 E78.5 Declines any medication s for nowMore diet and exerciseRe peat the labs Hyperglycemia 33860752 R 73.9 Get labs Erythrocytosis 737665471 D75.1 Repeat the CBCHe does smokeAdvis ed to quit! Screening for malignant neoplasm of skin 791640759 Z12.83 Refer to dermatolog y for routine skin care [id number] Nakita jones MD [facility] Rigo ricki [address] [facility] [address] [place] [address] 01/17/2025 10:34:48 01/17/2025 11:17:28 Screening - NAD 594677979 Z13.9 C-scope: Cologuard 01/09/2023 : Negative Get yearly flu shotGet tdapGet shingles vaccineUTD on COVID 19 vaccine RTC in 3 months, do labsER if worse, he did verbalize his understand ing of the above Cigarette smoker 5604310 7 F17.210 Advised to quit! He will try to do nicotine gum 1 PPD for 36 + years LDCT 06/13/2023 : Get PET CT and repeat the LDCT in 3 monthsLDCT 06/16/2024 : Next in one year: Dr Marie Get US AAA at age 67 years Pain of ri ght shoulder joint 7285751579 0328546 M25.511 Dr Morrell 01/14/2023 , Les Leach 03/04/2023 Multiple n odules of lung 157446078 R91.8 LDCT 06/13/2023 : Get PET CT and repeat the LDCT in 3 monthsLDCT 06/16/2024 Get US AAA at age 67 years Renal mass 841199755 N28 .[address] 08/14/2023 CT A/P 09/01/2023 : Dr Frank Marie 08/26/2023 Dr Marie 06/23/2024 , s/p LDCT 06/16/2024 , next OV one year Hyperlipidemia 78427220 E78.5 Declines any medication s for nowMore diet and exerciseRe peat the labs Hyperglycemia 01540834 R 73.9 Get labs Erythrocytosis 136854983 D75.1 Repeat the CBCHe does smokeAdvis ed to quit! Screening for malignant neoplasm of skin 425092498 Z12.83 Refer to dermatolog y for routine skin care Screening for cardiovascular system disease 255699698 Z13.6 [id number] Nakita jones MD [facility] [address] [place] [address] 05/23/2025 09:44:41 05/23/2025 10:14:28 Screening - NAD 788565877 Z13.9 C-scope: Cologuard 01/09/2023 : Negative Get yearly flu shotGet tdapGet shingles vaccineUTD on COVID 19 vaccine RTC in 6 months as per his wishes, do labsER if worse, he did verbalize his understand ing of the above Cigarette smoker 7388554 7 F17.210 Advised to quit! He will try to do nicotine gum 1 PPD for 36 + years LDCT 06/13/2023 : Get PET CT and repeat the LDCT in 3 monthsLDCT 06/16/2024 : Next in one year: Dr Marie Get US AAA at age 67 years Pain of ri ght shoulder joint 4679949029 0140006 M25.511 Dr Morrell 01/14/2023 , Les Leach 03/04/2023 Multiple n odules of lung 480314030 R91.8 LDCT 06/13/2023 : Get PET CT and repeat the LDCT in 3 monthsLDCT 06/16/2024 Get US AAA at age 67 years Renal mass 122986195 N28 .[address] 08/14/2023 CT A/P 09/01/2023 : Dr Frank Marie 08/26/2023 Dr Marie 06/23/2024 , s/p LDCT 06/16/2024 , next OV one year Hyperlipidemia 67509526 E78.5 Declines any medication s for nowMore diet and exerciseRe peat the labs Hyperglycemia 52942976 R 73.9 Get labs Erythrocytosis 651480136 D75.1 Repeat the CBC, stable H/H 05/17/2025 He does smokeAdvis ed to quit! Screening for malignant neoplasm of skin 059956948 Z12.83 Refer to dermatolog y for routine skin care Screening for cardiovascular system disease 085043846 Z13.6 Leukocytosis [id number] D 72.829 Mild will repeat CBC Macrocytosis 160901370 D 75.89 Get labsHe does readily admit to excessive alcohol use, advised to cut back and stop Health Concerns Section Related Observation LastModified by Organization Detai ls LastModified Time None Recorded Concern Status LastModified by Organization Details LastModified Time None Recorded Advance Directives Directive None Recorded Payers Insurance Date Sequence Insurance Name Policy Number Policy Camarena Covered Member ID Camarena Member ID Guarantor Name 05/20/2025 1 [place] [id number] Rashad Lancaster [id number] Rashad Lancaster 10/25/2024 1 [place] [id number] Rashad Lancaster [id number] Rashad Lancaster Notes Date Note Type Note Provider Name and Address Organization Details Recorded Time 01/19/2024 text/html OV 01/01/2023:Here to establish carePast Hx:Wilton franklin social family and surgical history Does well, not seen PCP for 3 years, does c/o R shoulder pain, no acute or remote trauma, no N/T or weakness in the R UE OV 07/09/2023: Here for his f/u apt, he did get the LDCT and now needs to get PET CT OV 01/19/2024: Here for his f/u apt, he feels well today Nakita Lomeli MD [address], [place], [address], [facility] [employer] [facility] 01/19/2024 10:22:08 07/19/2024 text/html OV 01/01/2023:Here to establish carePast Hx:Wilton franklin social family and surgical history Does well, not seen PCP for 3 years, does c/o R shoulder pain, no acute or remote trauma, no N/T or weakness in the R UE OV 07/09/2023: Here for his f/u apt, he did get the LDCT and now needs to get PET CT OV 01/19/2024: Here for his f/u apt, he feels well today Nakita Lomeli MD [address], [facility] [address], [place], [address], [facility] [employer] [facility] [employer] [facility] 07/19/2024 14:57:26 10/25/2024 text/html OV 01/01/2023:Here to establish carePast Hx:Wilton arriagad social family and surgical history Does well, not seen PCP for 3 years, does c/o R shoulder pain, no acute or remote trauma, no N/T or weakness in the R UE OV 07/09/2023: Here for his f/u apt, he did get the LDCT and now needs to get PET CT OV 01/19/2024: Here for his f/u apt, he feels well today OV 10/25/2024: Here for his routine apt, he is doing well today Nakita Lomeli MD [address], [place], [address], [employer] 10/25/2024 17:51:13 01/17/2025 text/html OV 01/01/2023:Here to establish carePast Hx:Wilton mcmanuswed social family and surgical history Does well, not seen PCP for 3 years, does c/o R shoulder pain, no acute or remote trauma, no N/T or weakness in the R UE OV 07/09/2023: Here for his f/u apt, he did get the LDCT and now needs to get PET CT OV 01/19/2024: Here for his f/u apt, he feels well today OV 10/25/2024: Here for his routine apt, he is doing well today OV 01/17/2025: Here for his routine apt, he feels well today, here to review the labs Nakita Lomeli MD [address], [place], [address], [employer] [facility] [employer] [facility] 01/17/2025 11:13:13 05/23/2025 text/html OV 01/01/2023:Here to establish carePast Hx:AbbySmAdam mcmanuswed social family and surgical history Does well, not seen PCP for 3 years, does c/o R shoulder pain, no acute or remote trauma, no N/T or weakness in the R UE OV 07/09/2023: Here for his f/u apt, he did get the LDCT and now needs to get PET CT OV 01/19/2024: Here for his f/u apt, he feels well today OV 10/25/2024: Here for his routine apt, he is doing well today OV 01/17/2025: Here for his routine apt, he feels well today, here to review the labs OV 05/23/2025: Here for his f/u apt, states that he is doing very well today ,he did do the labs Nakita Lomeli MD [address], [place], [address], [employer] [facility] [place] [facility] 05/23/2025 10:20:31
[2025-06-23 09:40] LABS: Estimated Glomerular Filt Rate > 60
== END 2025-06-23 08:54 | disposition home or self-care (01) ==
PROVIDERS: PCP Internal Medicine; Visit Provider Internal Medicine Hematology & Oncology
DX: Z12.2 Encounter for screening for malignant neoplasm of respiratory organs (principal)
CPT/HCPCS: 71260; Q9967